=== PATIENT | female | born 2000 | race Caucasian/White ===

== ENCOUNTER 2023-09-22 22:11 | Emergency (ER) | payer BC, OTHER ==
[~2023-09-22] VITALS: Ht 160 cm; Wt 82.4 kg
[2023-09-22 22:12] VITALS: TEMP 98
[2023-09-22 22:43] LABS: BASO # 0.1 10^3/uL (0.0-0.2); BASO % 0.4 % (0.0-1.0); EOS # 0.2 10^3/uL (0.0-0.5); HEMATOCRIT 39.2 % (36.0-47.0); HEMOGLOBIN 13.3 g/dl (12.0-15.5); LYMPH # 3.8 10^3/uL (1.5-5.0); LYMPH % 26.2 % (24.0-44.0); MEAN CORPUSCULAR HEMOGLOBIN 29.2 pg (27.0-33.0); MEAN CORPUSCULAR HGB CONC 33.9 g/dl (32.0-36.5); MEAN CORPUSCULAR VOLUME 86.2 fl (80.0-96.0); MONO # 0.9 10^3/uL (0.0-0.8); MONO % 6.1 % (2.0-8.0); NEUTROPHILS # 9.4 10^3/uL (1.5-8.5); NEUTROPHILS % 65.8 % (36.0-66.0); PLATELET COUNT, AUTOMATED 315 10^3/uL (150-450); RED BLOOD COUNT 4.55 10^6/uL (4.00-5.40); WHITE BLOOD COUNT 14.4 10^3/uL (4.0-10.0)
[2023-09-22 23:03] LABS: BLOOD UREA NITROGEN 10 MG/DL (9-23); CALCIUM LEVEL 8.3 MG/DL (8.5-10.1); CARBON DIOXIDE LEVEL 24 MMOL/L (20-31); CHLORIDE LEVEL 104 MMOL/L (98-107); CREATININE FOR GFR 0.56 MG/DL (0.55-1.30); GLOMERULAR FILTRATION RATE > 60.0 (>60); GLUCOSE, FASTING 89 MG/DL (60-100); POTASSIUM SERUM 3.6 MMOL/L (3.5-5.1); SODIUM LEVEL 136 MMOL/L (136-145)
[2023-09-22 23:22] LABS: HCG, SERUM QUANTITATIVE 42690.2 MIU/ML (<4.2)
[2023-09-23 01:51] VITALS: BP 123/76; O2SAT 99
== END 2023-09-23 01:52 | disposition home or self-care (01) ==
LOC: M ED 22:11
DX: O20.0 Threatened abortion (principal); Z3A.01 Less than 8 weeks gestation of pregnancy

== ENCOUNTER → 2023-10-24 | Outpatient (CLI) | payer OTHER ==
[2023-10-24 17:36] LABS: HEMATOCRIT 37.7 % (36.0-47.0); HEMOGLOBIN 12.6 g/dl (12.0-15.5); MEAN CORPUSCULAR HEMOGLOBIN 29.4 pg (27.0-33.0); MEAN CORPUSCULAR HGB CONC 33.4 g/dl (32.0-36.5); MEAN CORPUSCULAR VOLUME 88.1 fl (80.0-96.0); PLATELET COUNT, AUTOMATED 299 10^3/uL (150-450); RED BLOOD COUNT 4.28 10^6/uL (4.00-5.40); WHITE BLOOD COUNT 14.9 10^3/uL (4.0-10.0)
[2023-10-24 18:29] LABS: HIV 1&2 SCREEN NEGATIVE (NEGATIVE)
[2023-10-24 18:37] LABS: HEPATITIS C VIRUS ABY INDEX < 0.02 INDEX (<0.8)
[2023-10-24 23:45] LABS: GC DNA AMPLIFICATION NEGATIVE (NEGATIVE)
== END ==
LOC: M PLALAB 15:31
PROVIDERS: ATTEND Advanced Practice Midwife
DX: Z34.01 Encounter for supervision of normal first pregnancy, first trimester (principal)

== ENCOUNTER → 2023-12-27 | Outpatient (CLI) | payer OTHER | LOC: M RAD 14:39 | PROVIDERS: ATTEND Advanced Practice Midwife | DX: Z34.02 Encounter for supervision of normal first pregnancy, second trimester (principal) ==

== ENCOUNTER 2024-02-25 17:45 | Outpatient (CLI) | payer OTHER ==
[~2024-02-25] VITALS: Ht 160 cm; Wt 90.2 kg
[2024-02-25] MEDS ORDERED: RA M500C PO (18:05)
[2024-02-25] MEDS ORDERED: PRENTAB9 PO (18:05)
[2024-02-25] MEDS ORDERED: HOME MED LIST COMPLETE! XX SCH (18:05)
[2024-02-25 18:08] VITALS: BP 131/70; O2SAT 97
[2024-02-25 18:30] VITALS: BP 118/63
[2024-02-25 19:00] VITALS: BP 118/73; O2SAT 97
[2024-02-25 19:01] VITALS: O2SAT 98
== END 2024-02-25 19:11 | disposition home or self-care (01) ==
LOC: EEVIPCON 17:45 → M LDO 17:45
PROVIDERS: ATTEND Obstetrics & Gynecology
DX: O26.853 Spotting complicating pregnancy, third trimester (principal); Z3A.29 29 weeks gestation of pregnancy
CPT/HCPCS: 36415; 59025; 81001; 82950; 85027; 86780; 86850; 86900; 86901; 87088; 87186; 87389; 87810; 87850; G0463

== ENCOUNTER → 2024-02-25 | Outpatient (CLI) | payer OTHER ==
[~2024-02-25] MED LIST: PRENTAB9 PO; RA M500C PO
[2024-02-25 14:06] LABS: HEMOGLOBIN 11.3 g/dl (12.0-15.5); MEAN CORPUSCULAR HEMOGLOBIN 28.7 pg (27.0-33.0); MEAN CORPUSCULAR HGB CONC 32.3 g/dl (32.0-36.5); MEAN CORPUSCULAR VOLUME 88.8 fl (80.0-96.0); PLATELET COUNT, AUTOMATED 287 10^3/uL (150-450); RED BLOOD COUNT 3.94 10^6/uL (4.00-5.40); WHITE BLOOD COUNT 15.8 10^3/uL (4.0-10.0)
[2024-02-25 14:16] LABS: GLUCOSE CHALLENGE TEST 1 HOUR 113 MG/DL (LESS THAN 140)
[2024-02-25 14:46] LABS: HIV 1&2 SCREEN NEGATIVE (NEGATIVE)
[2024-02-25 15:32] LABS: GC DNA AMPLIFICATION NEGATIVE (NEGATIVE)
== END ==
LOC: M PLALAB 10:23
PROVIDERS: ATTEND Advanced Practice Midwife
DX: Z34.02 Encounter for supervision of normal first pregnancy, second trimester (principal); Z3A.00 Weeks of gestation of pregnancy not specified

== ENCOUNTER → 2024-03-17 | Outpatient (CLI) | payer OTHER | LOC: M WHC 11:25 | PROVIDERS: ATTEND Advanced Practice Midwife | DX: Z34.03 Encounter for supervision of normal first pregnancy, third trimester (principal); Z3A.32 32 weeks gestation of pregnancy ==

== ENCOUNTER 2024-04-09 10:10 | Outpatient (CLI) | payer OTHER ==
[~2024-04-09] VITALS: Ht 160 cm; Wt 96.8 kg
[2024-04-09 10:29] VITALS: BP 120/81
[2024-04-09] MEDS ORDERED: HOME MED LIST COMPLETE! XX SCH (10:30)
== END 2024-04-09 11:40 | disposition home or self-care (01) ==
LOC: M LDO 10:10
PROVIDERS: ATTEND Specialist
DX: O47.03 False labor before 37 completed weeks of gestation, third trimester (principal); Z3A.35 35 weeks gestation of pregnancy
CPT/HCPCS: 59025; G0463

== ENCOUNTER 2024-04-16 13:27 | Outpatient (CLI) | payer OTHER ==
[~2024-04-16] VITALS: Ht 160 cm; Wt 96.9 kg
[2024-04-16] MEDS ORDERED: TUMS750C22 PO (13:49)
[2024-04-16 13:51] VITALS: BP 142/85
[2024-04-16 14:06] VITALS: BP 145/85
[2024-04-16 14:22] VITALS: BP 141/85
[2024-04-16 14:37] VITALS: BP 135/85
[2024-04-16 15:36] LABS: HEMATOCRIT 33.6 % (36.0-47.0); MEAN CORPUSCULAR HEMOGLOBIN 27.7 pg (27.0-33.0); MEAN CORPUSCULAR HGB CONC 32.7 g/dl (32.0-36.5); MEAN CORPUSCULAR VOLUME 84.6 fl (80.0-96.0); PLATELET COUNT, AUTOMATED 278 10^3/uL (150-450); RED BLOOD COUNT 3.97 10^6/uL (4.00-5.40); WHITE BLOOD COUNT 17.9 10^3/uL (4.0-10.0)
[2024-04-16 15:41] VITALS: BP 142/89
[2024-04-16 15:49] LABS: URIC ACID 5.7 MG/DL (3.1-7.8)
[2024-04-16 15:51] LABS: LDH LACTATE DEHYDROGENASE 215 U/L (120-246)
[2024-04-16 15:53] LABS: ALBUMIN 2.5 G/DL (3.2-5.2); ALKALINE PHOSPHATASE 137 U/L (46-116); ALT/SGPT 10 U/L (7.0-40); ALT/SGPT 14 U/L (7.0-40); AST/SGOT 14 U/L (<34); BILIRUBIN,TOTAL 0.3 MG/DL (0.3-1.2); BILIRUBIN,TOTAL 0.4 MG/DL (0.3-1.2); BLOOD UREA NITROGEN 9 MG/DL (9-23); CALCIUM LEVEL 9.2 MG/DL (8.5-10.1); CARBON DIOXIDE LEVEL 22 MMOL/L (20-31); CHLORIDE LEVEL 109 MMOL/L (98-107); CREATININE FOR GFR 0.61 MG/DL (0.55-1.30); CREATININE FOR GFR 0.62 MG/DL (0.55-1.30); GLOMERULAR FILTRATION RATE > 60.0 (>60); GLUCOSE, FASTING 77 MG/DL (60-100); SODIUM LEVEL 138 MMOL/L (136-145); TOTAL PROTEIN 6.1 G/DL (5.7-8.2)
[2024-04-16 16:25] LABS: TOTAL PROTEIN,RANDOM URINE 10.8 MG/DL (0.0-14.0)
[2024-04-16 16:49] LABS: CREATININE,RANDOM URINE 238.7 MG/DL
[2024-04-16 17:04] VITALS: BP 139/87
== END 2024-04-16 17:20 | disposition home or self-care (01) ==
LOC: M LDO 13:27
PROVIDERS: ATTEND Obstetrics & Gynecology
DX: O26.893 Other specified pregnancy related conditions, third trimester (principal); N89.8 Other specified noninflammatory disorders of vagina; Z3A.36 36 weeks gestation of pregnancy
CPT/HCPCS: 36415; 59025; 76815; 80053; 82247; 82570; 83615; 84156; 84450; 84460; 84550; 85027; G0463

== ENCOUNTER → 2024-04-21 | Outpatient (REF) | payer OTHER ==
[~2024-04-21] MED LIST changes: +TUMS750C22 PO
== END ==
LOC: M SFHCWAGY 17:23
PROVIDERS: ATTEND Advanced Practice Midwife
DX: Z34.03 Encounter for supervision of normal first pregnancy, third trimester (principal)

== ENCOUNTER 2024-04-27 15:46 | Inpatient (IN) | payer OTHER ==
[~2024-04-27] VITALS: Ht 160 cm; Wt 99.4 kg
[2024-04-27] MEDS ORDERED: HOME MED LIST COMPLETE! XX SCH (16:10)
[2024-04-27 16:11] VITALS: BP 145/98
[2024-04-27] MEDS ORDERED: LIDOCAINE 1% MDV 20ML VIAL INFIL PRN (16:25)
[2024-04-27] MEDS ORDERED: OXYTOCIN INJ 10UNITS/ML 1ML VIAL IM PRN (16:25)
[2024-04-27] MEDS ORDERED: CARBOPROST TROMETHAMINE 250 MCG/ML AMP IM PRN (16:25)
[2024-04-27] MEDS ORDERED: TRANEXAMIC ACID INJection 1,000 MG in NS 100 ML IV PRN (16:25)
[2024-04-27 16:26] VITALS: BP 151/98
[2024-04-27 16:40] LABS: HEMATOCRIT 34.4 % (36.0-47.0); HEMOGLOBIN 11.3 g/dl (12.0-15.5); MEAN CORPUSCULAR HEMOGLOBIN 27.1 pg (27.0-33.0); MEAN CORPUSCULAR HGB CONC 32.8 g/dl (32.0-36.5); MEAN CORPUSCULAR VOLUME 82.5 fl (80.0-96.0); PLATELET COUNT, AUTOMATED 268 10^3/uL (150-450); RED BLOOD COUNT 4.17 10^6/uL (4.00-5.40); WHITE BLOOD COUNT 13.1 10^3/uL (4.0-10.0)
[2024-04-27 16:42] VITALS: BP 158/101
[2024-04-27 16:59] LABS: URIC ACID 4.4 MG/DL (3.1-7.8)
[2024-04-27 17:01] LABS: LDH LACTATE DEHYDROGENASE 222 U/L (120-246)
[2024-04-27 17:02] LABS: ALT/SGPT 10 U/L (7.0-40); AST/SGOT 13 U/L (<34); BILIRUBIN,TOTAL 0.4 MG/DL (0.3-1.2); CREATININE FOR GFR 0.47 MG/DL (0.55-1.30); GLOMERULAR FILTRATION RATE > 60.0 (>60)
[2024-04-27 17:51] VITALS: BP 146/95
[2024-04-27] MEDS: miSOPROStol 50MCG 1/2 TABLET PO SCH (17:51)
[2024-04-27 18:49] LABS: CREATININE,RANDOM URINE 19.2 MG/DL
[2024-04-27 18:51] VITALS: BP 143/91
[2024-04-27 18:53] LABS: TOTAL PROTEIN,RANDOM URINE < 6.0 MG/DL (0.0-14.0)
[2024-04-27 19:31] LABS: HEPATITIS C VIRUS ABY INDEX < 0.02 INDEX (<0.8)
[2024-04-28] VITALS (24 sets, daily range): BP systolic 116–151; BP diastolic 57–94; O2SAT 98
[2024-04-28] MEDS: OXYTOCIN DRIP 30 UNITS in IV 1 EA IV SCH (13:20)
[2024-04-28] MEDS: LR 1,000 ML IV SCH (13:29)
[2024-04-29] VITALS (38 sets, daily range): BP systolic 96–156; BP diastolic 51–87; O2SAT 96
[2024-04-29] MEDS ORDERED: ePHEDrine SULFATE 25 MG/5 ML(5MG/ML) SYRINGE IVP PRN (00:25)
[2024-04-29] MEDS ORDERED: ONDANSETRON 4MG 2ML VIAL IV PRN ×2 (00:25→07:40)
[2024-04-29] MEDS ORDERED: NALOXONE INJ 0.4MG/1ML VIAL IV PRN (00:25)
[2024-04-29] MEDS ORDERED: LR 500 ML IV PRN (00:25)
[2024-04-29] MEDS ORDERED: EPIDURAL/PCA KEYS XX PRN (00:25)
[2024-04-29] MEDS ORDERED: diphenhydrAMINE 50MG/ML VIAL IV PRN (00:25)
[2024-04-29] MEDS: FENTANYL/ROPIVACAINE/NACL BAG 100 ML EPIDURAL SCH (00:38)
[2024-04-29] MEDS: ACETAMINOPHEN 500 MG TAB PO ONE (06:44)
[2024-04-29] MEDS: AMPICILLIN SOD/SULBACTAM SOD 3 GM in D5W MINI-BAG PLUS 100 ML IV SCH (06:45)
[2024-04-29 07:14] LABS: CORD GAS ABE V -8.4; CORD GAS HCO3 V 17.3 MMOL/L; CORD GAS O2 SAT V 86.8 %; CORD GAS PCO2 V 36.5 mmHg; CORD GAS PH V 7.294 UNITS; CORD GAS PO2 V 44.5 mmHg; CORD GAS SBC V 17.6 MMOL/L; CORD GAS TCO2 V 18.4 MMOL/L
[2024-04-29] MEDS: OXYTOCIN DRIP 30 UNITS in IV 1 EA IV PRN (07:25)
[2024-04-29] MEDS ORDERED: CALCIUM CARBONATE 500 MG CHEW U/D PO PRN (07:40)
[2024-04-29] MEDS: OXYTOCIN DRIP 30 UNITS in IV 1 EA IV SCH (07:40)
[2024-04-29] MEDS ORDERED: LR 1,000 ML IV SCH (07:40)
[2024-04-29] MEDS ORDERED: IBUPROFEN 600MG TAB PO PRN (07:40)
[2024-04-29] MEDS ORDERED: ACETAMINOPHEN TAB 650MG DOSE (2X325MG) PO PRN (07:40)
[2024-04-29] MEDS ORDERED: RHO(D) IMMUNE GLOBULIN/MALTOSE 500MCG(2500IU)/2.2ML VIAL (WINRHO) IM SCH (07:40)
[2024-04-29] MEDS: PRENATAL VITAMINS CHEWABLE TABLET PO SCH (09:00)
[2024-04-29] MEDS: DIBUCAINE 1% OINTMENT 30GM TOP PRN (21:43)
[2024-04-29] MEDS: IBUPROFEN 800 MG TAB PO PRN (23:53)
[2024-04-30] MEDS: ACETAMINOPHEN 500 MG TAB PO PRN (06:21)
[2024-04-30] MEDS: DOCUSATE SODIUM 100MG CAPSULE PO PRN (11:59)
[2024-04-30 18:25] VITALS: BP 141/76; O2SAT 98
[2024-05-01 06:00] VITALS: BP 123/74; O2SAT 99
[2024-05-01] MEDS: MEASLES,MUMPS,RUBELLA VACCINE INJ (MMR-II) SC.IMMUN ONE (07:27)
== END 2024-05-01 12:25 | disposition home or self-care (01) | DRG 807 ==
LOC: M LDO 15:46 → M LDI 16:25 → M OBS 04-29 09:40
PROVIDERS: ADMIT Advanced Practice Midwife; ATTEND Advanced Practice Midwife
PROC: 10E0XZZ Delivery of Products of Conception, External Approach (ICD-10-PCS; principal; 2024-04-29)
PROC: 0HQ9XZZ Repair Perineum Skin, External Approach (ICD-10-PCS; 2024-04-29)
DX: O41.1290 Chorioamnionitis, unspecified trimester, not applicable or unspecified (principal); Z37.0 Single live birth; Z3A.39 39 weeks gestation of pregnancy; O70.0 First degree perineal laceration during delivery